=== PATIENT | male | born 1995 | race Caucasian/White ===

== ENCOUNTER 2016-09-23 16:07 | Emergency (ER) | payer OTHER ==
[2016-09-23] MEDS ORDERED: KETOROLAC 60 MG/2 ML VIAL IM ONE (17:01)
[2016-09-23] MEDS ORDERED: LIDOCAINE 2% 20 ML ONE (17:01)
== END 2016-09-23 19:10 | disposition home or self-care (01) ==
LOC: ER 16:07
DX: S61.214A Laceration without foreign body of right ring finger without damage to nail, initial encounter (principal); F17.290 Nicotine dependence, other tobacco product, uncomplicated; W23.0XXA Caught, crushed, jammed, or pinched between moving objects, initial encounter; Y92.009 Unspecified place in unspecified non-institutional (private) residence as the place of occurrence of the external cause
CPT/HCPCS: 96372